=== PATIENT | male | born 1990 ===

== ENCOUNTER → 2019-12-16 | Outpatient (CLI) | payer MEDICAID ==
[~2019-12-16] VITALS: Ht 190.5 cm; Wt 81.6 kg
[~2019-12-16] MED LIST: MULTIVITAMINS1 EAC2 ORAL
--- NOTE | 2019-12-16 17:30 | Consultation ---
DATE OF CONSULTATION: 12/16/2019 CONSULTING PHYSICIAN: Luis Cedillo MD. CHIEF COMPLAINT: Abdominal pain and GERD. PAST MEDICAL HISTORY: None. PAST SURGICAL HISTORY: None. MEDICATIONS: Multivitamin. FAMILY HISTORY: No family history of GI malignancies. SOCIAL HISTORY: Patient drinks 2 times per week. Denies any tobacco usage. He also uses marijuana. ALLERGIES: No known drug allergies. REVIEW OF SYSTEMS: Positive for nausea and abdominal pain. PHYSICAL EXAMINATION: VITAL SIGNS: Temperature 98.3, blood pressure 144/99, pulse 60, respirations 20. HEENT: Normocephalic, atraumatic. Sclerae are anicteric. NECK: Supple. No evidence of obvious lymphadenopathy. CARDIOVASCULAR: Rhythm rate and rhythm. Plus S1-S2. LUNGS: Clear to auscultation bilaterally. ABDOMEN: Positive bowel sounds. Soft and nontender. No rebound. No guarding. No peritoneal sign. EXTREMITIES: No cyanosis, no clubbing, no edema. ASSESSMENT AND PLAN: This is a 29-year-old male with abdominal pain. Negative H. pylori serology per patient. Negative abdominal ultrasound per patient. These symptoms can be from severe reflux, but according to the patient, he did not respond to PPI, so our plan will be to schedule for endoscopy for evaluation of the cause of abdominal pain. Luis Cedillo M.D. DR: KAROLINA JOB#: [id number] CC:
[2019-12-18 11:19] VITALS: BP 144/99
== END | disposition home or self-care (01) ==
LOC: PAN 10:01
DX: R10.9 Unspecified abdominal pain (principal); K21.9 Gastro-esophageal reflux disease without esophagitis; F12.90 Cannabis use, unspecified, uncomplicated; R11.0 Nausea

== ENCOUNTER 2020-06-15 09:56 | Outpatient (CLI) | payer MEDICAID ==
[2020-06-15 10:06] VITALS: BP 146/85
--- NOTE | 2020-06-15 11:50 | General Progress Note ---
Subjective ROS Limited/Unobtainable: Yes Allergies: Coded Allergies: No Known Allergies (Unverified , 12/18/19) Objective Last 24 Hour Vital Signs Date Time Temp Pulse Resp B/P (MAP) Pulse Ox O2 Delivery O2 Flow Rate FiO2 06/15/20 10:06 97.6 61 16 146/85 100 General Appearance: alert EENT: normal ENT inspection Neck: supple Cardiovascular: normal rate Respiratory/Chest: decreased breath sounds Abdomen: normal bowel sounds, non tender, soft Extremities: non-tender Assessment/Plan Assessment/Plan: abd pain ETOH abuse gastritis ppi RTC prn Luis Cedillo MD Jun 15, 2020 11:50
== END 2020-06-15 11:56 | disposition home or self-care (01) ==
LOC: PAN 09:56
DX: R10.9 Unspecified abdominal pain (principal); F10.10 Alcohol abuse, uncomplicated; K29.70 Gastritis, unspecified, without bleeding
CPT/HCPCS: 99212